=== PATIENT | male | born 1960 | race Caucasian/White ===

== ENCOUNTER → 2025-10-06 | Day surgery (SDC) | payer MEDICAID ==
[~2025-10-06] VITALS: Ht 165.1 cm; Wt 81.8 kg
[~2025-10-06] MED LIST: LIDOCAINE/PF 2% 5 ML VIAL ONE; OXYGEN THERAPY IH SCH; PROPOFOL 1% 20 ML VIAL IVP ONE
[2025-10-06] MEDS: SODIUM CHLORIDE 0.9% 1,000 ML IV ONE (08:42)
== END | disposition home or self-care (01) ==
LOC: SURGERY 08:02
PROVIDERS: ATTEND Specialist
DX: K74.60 Unspecified cirrhosis of liver (principal); K44.9 Diaphragmatic hernia without obstruction or gangrene; K29.50 Unspecified chronic gastritis without bleeding; B96.81 Helicobacter pylori [H. pylori] as the cause of diseases classified elsewhere; Z87.891 Personal history of nicotine dependence; Z90.49 Acquired absence of other specified parts of digestive tract; Z98.890 Other specified postprocedural states
CPT/HCPCS: 43239; 88305; J2704; J3490